=== PATIENT | female | born 1970 | race African-American/Black ===

== ENCOUNTER 2018-06-28 18:12 | Emergency (ER) | payer OTHER ==
[~2018-06-28] VITALS: Ht 160 cm; Wt 127.0 kg
[2018-06-28 18:58] LABS: HEMATOCRIT 33.8 % (37.0-47.0); HEMOGLOBIN 11.2 gm/dL (12.0-15.0); MCH 28.5 pg (26.0-34.0); MCHC 33.1 g/dL (28.0-37.0); RBC 3.93 mil/uL (4.20-5.00); RDW 17.1 % (10.5-14.5); WBC 12.3 thou/uL (4.0-11.0)
[2018-06-28] MEDS ORDERED: BENZTROPINE ME0.5 MG PO (19:06)
[2018-06-28 19:07] LABS: CALCIUM 9.4 mg/dL (8.5-10.1); CREATININE 0.8 mg/dL (0.6-1.0); POTASSIUM 3.5 mmol/L (3.5-5.1); SALICYLATE 3.4 mg/dL (2.8-20.0)
[2018-06-28] MEDS ORDERED: SPIRONOLACTONE25 M1 PO (19:07)
[2018-06-28] MEDS ORDERED: RISPERDAL 1 MG T1 MG PO (19:09)
[2018-06-28] MEDS ORDERED: PROTONIX40 M1 PO (19:09)
[2018-06-28] MEDS ORDERED: AUGMENTIN 875-1 EACH (19:09)
[2018-06-28] MEDS ORDERED: NEURONTIN600 MG PO (19:10)
[2018-06-28 21:33] LABS: URINE BILIRUBIN NEGATIVE (Negative); URINE BLOOD NEGATIVE (Negative); URINE CLARITY SL CLOUDY; URINE COLOR YELLOW; URINE GLUCOSE-RANDOM* NEGATIVE (Negative); URINE KETONES TRACE (Negative); URINE LEUKOCYTES-REFLEX NEGATIVE (Negative); URINE NITRITE-REFLEX NEGATIVE (Negative); URINE PROTEIN (DIPSTICK) TRACE (Negative); URINE SPECIFIC GRAVITY 1.025 (1.005-1.035)
[2018-06-28 21:46] LABS: AMP/METHAMP Negative (Negative); BARBITURATES Negative (Negative); BENZODIAZEPINES Negative (Negative); COCAINE Negative (Negative); METHADONE Negative (Negative); OPIATES Negative (Negative); PCP Negative (Negative)
[2018-06-28] MEDS ORDERED: KEFLEX500 M1 PO (22:11)
[2018-06-29 15:00] VITALS: BP 148/79
[2018-07-01 20:05] LABS: TRICYCLIC (TCA) CONFIRMATION Negative ng/mL (Cutoff=100)
== END 2018-06-29 15:00 | disposition short-term general hospital (02) ==
LOC: ER 18:12
PROVIDERS: Emergency Medicine
DX: R45.851 Suicidal ideations (principal); F31.9 Bipolar disorder, unspecified; Z88.6 Allergy status to analgesic agent